=== PATIENT | male | born 2000 | race Caucasian/White ===

== ENCOUNTER 2020-08-25 16:30 | Emergency (ER) | payer BC, OTHER ==
[2020-08-25] MEDS ORDERED: CEPHALEXIN500 MG PO (17:18)
== END 2020-08-25 17:25 | disposition home or self-care (01) ==
LOC: ER1 16:30
DX: S60.940A Unspecified superficial injury of right index finger, initial encounter (principal); W22.8XXA Striking against or struck by other objects, initial encounter
CPT/HCPCS: 10120; 99282; 99283